=== PATIENT | male | born 1965 | race Caucasian/White ===

== ENCOUNTER 2021-11-16 19:12 | Emergency (ER) | payer BC ==
[2021-11-16 20:38] VITALS: BP 130/70; PULSE 78
[2021-11-16] MEDS ORDERED: Diphtheria,Pertussis(Acell),Tetanus Vaccine 0.5 ML Syringe IM ONE (21:11)
[2021-11-16] MEDS ORDERED: Bupivacaine 0.5% 10 ML SDV INJECT ONE (21:30)
--- NOTE | 2021-11-16 21:43 | CR ---
Indication: Cut on left 2nd digit tip of finger. Technique: Left hand 2nd digit, 3 views. Comparison: None. Findings: No acute fracture or dislocation. No soft tissue gas or radiopaque foreign body within the tip of the 2nd digit. There are multiple small radiopaque densities in the dorsal aspect of the hand between the 2nd and 3rd metacarpals. Incidentally noted small exostosis arising from the distal shaft of the 1st metacarpal. Impression: 1. No acute findings involving the 2nd digit. 2. Multiple small radiopaque foreign bodies in the dorsal aspect of the hand between the 2nd and 3rd metacarpals. Correlate with patient history. Dictated by Keren Norton MD @ 11/16/2021 9:42:38 PM (Electronically Signed)
--- NOTE | 2021-11-16 22:30 | EDM.PDOC ---
ED HPI GENERAL MEDICAL PROBLEM - General Chief Complaint: Upper Extremity Injury/Pain Stated Complaint: LEFT HAND INDEX FINGER INJURY Time Seen by Provider: 11/16/21 20:55 Source of Information: Reports: Patient History Limitations: Reports: No Limitations - History of Present Illness INITIAL COMMENTS - FREE TEXT/NARRATIVE: HISTORY AND PHYSICAL: History of present illness: Patient is a 56-year-old male who presents emergency room today with concern of left hand second digit laceration that occurred just prior to arrival to the emergency room. Patient states that he was using a drill and was wearing safety gloves. Patient states that the drill caught his safety glove but he sustained a laceration. Patient states that he is unsure of his tetanus but would like to update this today. Patient denies fever, chills, chest pain, shortness of breath, or cough. Denies headache, neck stiff ness, change in vision, syncope, or near syncope. Denies nausea, vomiting, abdominal pain, diarrhea, constipation, or dysuria. Has not noted any blood in urine or stool. Patient has been eating and drinking appropriately. Review of systems: As per history of present illness and below otherwise all systems reviewed and negative. Past medical history: As per history of present illness and as reviewed below otherwise noncontributory. Surgical history: As per history of present illness and as reviewed below otherwise noncontributory. Social history: See social history for further information Family history: As per history of present illness and as reviewed below otherwise noncontributory. Physical exam: General: Patient is alert, oriented, and in no acute distress. Patient sitting comfortably on exam table. Vital stable and reviewed by me. HEENT: Atraumatic, normocephalic, pupils equal and reactive bilaterally, negative for conjunctival pallor or scleral icterus, mucous membranes moist, throat clear, neck supple, nontender, trachea midline. No drooling or trismus noted. No meningeal signs. No hot potato voice noted. Lungs: Clear to auscultation, breath sounds equal bilaterally, chest nontender. Heart: S1S2, regular rate and rhythm without overt murmur Abdomen: Soft, nondistended, nontender. Negative for masses or hepatosplenomegaly. Negative for costovertebral tenderness. Pelvis: Stable nontender. Genitourinary: Deferred. Rectal: Deferred. Skin: Intact, warm, dry. No lesions or rashes noted. Extremities: There is a 1.5 cm irregular laceration of the left hand distal finger at the base of the nailbed, partially but not completely lifting the base of the nailbed with hemostasis. Patient does not have full extension of the DIP of the affected finger and the finger is edematous. Patient does have intact sensation to light and deep touch of the complete left upper extremity. Radial pulses grossly intact to left upper extremity with capillary refill less than 2 seconds. Otherwise, atraumatic, negative for cords or calf pain. Neurovascular unremarkable. Neuro: Awake, alert, oriented. Cranial nerves II through XII unremarkable. Cerebellum unremarkable. Motor and sensory unremarkable throughout. Exam nonfocal. Medical Decision Making: On exam, patient does have difficulties completely extending the DIP of the affected finger. However, this does improve, although not completely straight at discharge. I discussed with patient to reassess range of motion in the morning and if he is still unable to completely extend the affected joint, to follow-up closely with a hand specialist and call them tomorrow for further evaluation. Strict return precautions thoroughly discussed with patient. Discussed the importance of follow-up with a primary care provider/possible hand specialist. Voices understanding and is agreeable to plan of care. Denies any further questions or concerns at this time. Diagnostics: Finger x-ray Therapeutics: Digital block, sutures, sterile dressing placed by nursing staff, tdap Prescription: None Impression: Finger laceration, left, second digit Plan: 1. Keep the area clean and dry. Continue to monitor for signs of infection as discussed. Sutures to be removed in 7-10 days. 2. Tylenol and/or ibuprofen as directed and as needed for pain management and discomfort. 3. Please follow-up with your primary care provider as discussed. Return to the ED as needed and as discussed. Definitive disposition and diagnosis as appropriate pending reevaluation and review of above. - Related Data Allergies Allergy/AdvReac Type Severity Reaction Status Date / Time No Known Allergies Allergy Verified 11/16/21 20:38 Home Meds: Home Meds Levothyroxine [Synthroid] 11/16/21 [History] hydroCHLOROthiazide [Hydrochlorothiazide] 11/16/21 [History] Past Medical History - Past Health History Medical/Surgical History: Denies Medical/Surgical History Other HEENT History: on antibiotics at this time for ear infection/ Dr. Hegge aware Cardiovascular History: Reports: Hypertension Respiratory History: Reports: Asthma Neurological History: Reports: Migraines - Past Surgical History Head Surgeries/Procedures: Reports: None Social & Family History - Tobacco Use Second Hand Smoke Exposure: No - Caffeine Use Caffeine Use: Reports: None - Recreational Drug Use Recreational Drug Use: No Review of Systems - Review of Systems Review Of Systems: Comprehensive ROS is negative, except as noted in HPI. ED EXAM, GENERAL - Physical Exam Exam: See Below (see dictation) ED TRAUMA EXTREMITY PROCEDURES - Laceration/Wound Repair Left Distal Digit - 2nd (Index) Lac/Wound Length In cm: 1.5 (Suturing performed by PA student Susanne Ospina observed and supervised directly by me.) Appearance: Subcutaneous, Linear, Clean Distal NVT: Neuro & Vascular Intact Anesthetic Type: Digital Local Anesthesia - Lidocaine (Xylocaine): 1% Plain Local Anesthetic Volume: Other (10cc) Skin Prep: Chlorhexidine (Hibiciens), Saline Saline Irrigation (cc's): 500 Exploration/Debridement/Repair: Wound Explored, In a Bloodless Field, Explored to Base, No Foreign Material Found Closed With: Sutures Suture Size: 4-0 # of Sutures: 8 (There are 2 sutures through the nailbed as the base of the nailbed paritally lifted with vicryl suture) Suture Type: Silk, Interrupted Drain Placement: No Sterile Dressing Applied: Nurse Tetanus Status Addressed: Yes Complications: No Course - Vital Signs Last Recorded V/S: Last Vital Signs Temp 98.1 F 11/16/21 20:32 Pulse 78 11/16/21 20:32 Resp 20 11/16/21 20:32 BP 130/70 11/16/21 20:32 Pulse Ox 99 11/16/21 20:32 - Orders/Labs/Meds Orders: Active Orders 24 hr Category Date Time Status Vaccine to be Administered/Admin Charge [RC] ASDIRECTED Care 11/16/21 21:11 Active Meds: Medications Discontinued Medications Generic Name Dose Route Start Last Admin Trade Name Freq PRN Reason Stop Dose Admin Bupivacaine HCl 10 ml 11/16/21 21:30 11/16/21 21:34 Bupivacaine 0.5% 10 Ml Sdv INJECT 11/16/21 21:31 10 ml ONETIME ONE Administration Diphtheria/Tetanus/Acell Pertussis 0.5 ml 11/16/21 21:11 11/16/21 21:24 Diphtheria,Pertussis(Acell),Tetanus Vaccine 0.5 Ml Syringe IM 11/16/21 21:12 0.5 ml .ONCE ONE Administration Lidocaine HCl 5 ml 11/16/21 21:29 11/16/21 21:34 Lidocaine 1% 5 Ml Sdv INJECT 11/16/21 21:30 5 ml ONETIME ONE Administration Departure - Departure Time of Disposition: 22:44 Disposition: Home, Self-Care 01 Clinical Impression: Finger laceration - Discharge Information Referrals: PCP,None [Primary Care Provider] - Forms: ED Department Discharge Additional Instructions: The following information is given to patients seen in the emergency department who are being discharged to home. This information is to outline your options for follow-up care. We provide all patients seen in our emergency department with a follow-up referral. The need for follow-up, as well as the timing and circumstances, are variable depending upon the specifics of your emergency department visit. If you don't have a primary care physician on staff, we will provide you with a referral. We always advise you to contact your personal physician following an emergency department visit to inform them of the circumstance of the visit and for follow-up with them and/or the need for any referrals to a consulting specialist. The emergency department will also refer you to a specialist when appropriate. This referral assures that you have the opportunity for follow-up care with a specialist. All of these measure are taken in an effort to provide you with optimal care, which includes your follow-up. Under all circumstances we always encourage you to contact your private physician who remains a resource for coordinating your care. When calling for follow-up care, please make the office aware that this follow-up is from your recent emergency room visit. If for any reason you are refused follow-up, please contact the [facility] at and asked to speak to the emergency department charge nurse. [facility] [address] [place] [id number] [address] [facility], Hand and Wrist Surgery, Dr[address] [place] [address] PH: [phone] 1. Keep the area clean and dry. Continue to monitor for signs of infection as discussed. Sutures to be removed in 7-10 days. 2. Tylenol and/or ibuprofen as directed and as needed for pain management and discomfort. 3. Please follow-up with your primary care provider as discussed. Return to the ED as needed and as discussed. Sepsis Event Note (ED) - Evaluation Sepsis Screening Result: No Definite Risk - Focused Exam Vital Signs: Vital Signs Temp Pulse Resp BP Pulse Ox 11/16/21 20:32 98.1 F 78 20 130/70 99 - My Orders Last 24 Hours: My Active Orders 11/16/21 21:11 Vaccine to be Administered/Admin Charge [RC] ASDIRECTED - Assessment/Plan Last 24 Hours: My Active Orders 11/16/21 21:11 Vaccine to be Administered/Admin Charge [RC] ASDIRECTED
== END 2021-11-16 23:00 | disposition home or self-care (01) ==
LOC: MW.ED 19:12
DX: S61.311A Laceration without foreign body of left index finger with damage to nail, initial encounter (principal); I10 Essential (primary) hypertension; E03.9 Hypothyroidism, unspecified; Z79.899 Other long term (current) drug therapy; Z23 Encounter for immunization; W29.8XXA Contact with other powered hand tools and household machinery, initial encounter
CPT/HCPCS: 11760; 73140; 90471; 90715; 99283; J3490

== ENCOUNTER 2022-11-26 11:18 | Day surgery (SDC) | payer BC ==
[~2022-11-26 11:18] MED LIST: Lactated Ringers 1,000 ML IV SCH
[2022-11-26] MEDS ORDERED: Lidocaine 2% 5 ML SDV ONE (12:34)
[2022-11-26] MEDS ORDERED: Propofol 200 MG/20 ML SDV ONE (12:35)
[2022-11-26] MEDS ORDERED: fentaNYL 100 MCG/2 ML SDV ONE (12:35)
[2022-11-26] MEDS ORDERED: Lactated Ringers 1,000 ML IV SCH (13:15)
[2022-11-26 14:03] VITALS: BP 119/82; PULSE 67
== END 2022-11-26 13:55 | disposition home or self-care (01) ==
LOC: MW.SDS 11:18
PROVIDERS: ATTEND Surgery
DX: Z12.11 Encounter for screening for malignant neoplasm of colon (principal); I10 Essential (primary) hypertension; J45.909 Unspecified asthma, uncomplicated; E66.9 Obesity, unspecified; G43.909 Migraine, unspecified, not intractable, without status migrainosus; Z79.899 Other long term (current) drug therapy; Z98.890 Other specified postprocedural states
CPT/HCPCS: 45378; J2704; J3010; J7120; J3490

== ENCOUNTER 2024-01-04 06:41 | Day surgery (SDC) | payer BC, OTHER ==
[~2024-01-04 06:41] MED LIST changes: +Acetaminophen 1,000 MG in Premix Bag 1 BAG IV SCH; +Pregabalin 75 MG Cap PO SCH; +ceFAZolin 2 GM in Sodium Chloride 0.9% 50 ML IV ONE
[2024-01-04] MEDS: Lactated Ringers 1,000 ML IV SCH (07:13)
[2024-01-04] MEDS: Pregabalin 75 MG Cap PO SCH (07:16)
[2024-01-04] MEDS ORDERED: Bupivacaine 0.5% 30 ML SDV ONE (07:20)
[2024-01-04] MEDS ORDERED: Metoclopramide 10 MG/2 ML SDV IVPUSH PRN (07:31)
[2024-01-04] MEDS ORDERED: fentaNYL 50 MCG/ML SDV IVPUSH PRN (07:31)
[2024-01-04] MEDS ORDERED: Albuterol 0.083% 2.5 MG/3 ML Neb Soln NEB PRN (07:31)
[2024-01-04] MEDS ORDERED: Morphine 2 MG/ML SYRINGE IVPUSH PRN (07:31)
[2024-01-04] MEDS ORDERED: Rocuronium Bromide 50 MG/5 ML Syringe ONE ×2 (07:31→09:00)
[2024-01-04] MEDS ORDERED: Ketorolac 30 MG/ML SDV ONE (07:31)
[2024-01-04] MEDS ORDERED: Naloxone 0.4 MG/ML SDV IVPUSH PRN (07:31)
[2024-01-04] MEDS ORDERED: Ondansetron 4 MG/2 ML SDV IVPUSH PRN (07:31)
[2024-01-04] MEDS ORDERED: Dexamethasone 4 MG/ML 5 ML MDV ONE (07:31)
[2024-01-04] MEDS ORDERED: Lidocaine 2% 5 ML SDV ONE (07:31)
[2024-01-04] MEDS ORDERED: Sugammadex Sodium 200 MG/2 ML VIAL IV ONE (07:31)
[2024-01-04] MEDS ORDERED: HYDROmorphone 1 MG/ML Syringe IVPUSH PRN (07:31)
[2024-01-04] MEDS ORDERED: droPERidol 5 MG/2 ML SDV IVPUSH PRN (07:31)
[2024-01-04] MEDS ORDERED: Propofol 200 MG/20 ML SDV ONE (07:32)
[2024-01-04] MEDS ORDERED: fentaNYL 100 MCG/2 ML SDV ONE ×3 (07:32→09:57)
[2024-01-04] MEDS ORDERED: EPINEPHrine 1 MG/1 ML Amp ONE (07:33)
[2024-01-04] MEDS ORDERED: Ropivacaine 0.5% 5 MG/ML 30 ML SDV ONE (07:33)
[2024-01-04] MEDS ORDERED: Bupivacaine 0.25% 30 ML SDV ONE (07:33)
[2024-01-04] MEDS ORDERED: ceFAZolin 2 GM Vial ONE (08:23)
[2024-01-04] MEDS ORDERED: ePHEDrine 50 MG/ML SDV ONE (08:25)
[2024-01-04 11:56] VITALS: BP 118/78; PULSE 60
== END 2024-01-04 12:05 | disposition home or self-care (01) ==
LOC: MW.SDS 06:41
PROVIDERS: ATTEND Surgery
DX: K40.20 Bilateral inguinal hernia, without obstruction or gangrene, not specified as recurrent (principal); D17.6 Benign lipomatous neoplasm of spermatic cord; I25.10 Atherosclerotic heart disease of native coronary artery without angina pectoris; I10 Essential (primary) hypertension; E03.9 Hypothyroidism, unspecified; J45.909 Unspecified asthma, uncomplicated; J18.9 Pneumonia, unspecified organism; R07.9 Chest pain, unspecified; G43.909 Migraine, unspecified, not intractable, without status migrainosus; L30.9 Dermatitis, unspecified; R31.9 Hematuria, unspecified; Z79.899 Other long term (current) drug therapy; Z86.16 Personal history of COVID-19; Z79.890 Hormone replacement therapy; Z87.891 Personal history of nicotine dependence
CPT/HCPCS: 49650; A9270; J0131; J0171; J0665; J0690; J1100; J1885; J2704; J2795; J3010; J3490; J7120; C1781